=== PATIENT | female | born 1940 | race Caucasian/White ===

== ENCOUNTER 2018-12-08 20:54 | Emergency (ER) | payer SELFPAY ==
[~2018-12-08] VITALS: Ht 157.5 cm; Wt 57.4 kg
[2018-12-08 21:17] VITALS: BP 135/77
--- NOTE | 2018-12-08 21:28 | NUR ---
EYE ACUITY: BOTH EYES 20/20, LEFT EYE 20/20, RIGHT EYE 20/20.
--- NOTE | 2018-12-08 21:31 | NUR ---
PT AMBULATES TO BED 11 WITH STEADY GAIT. FAMILY ACCOMPANYING.
[2018-12-08] MEDS ORDERED: TETRACAINE HCL/PF 0.5% OPTH 4 ML BTL OP ONE (21:35)
--- NOTE | 2018-12-08 21:50 | NUR ---
PATIENT PRESENTS TO ED C/O 09/09 PULSATING RIGHT EYE PAIN WITH TEARING X 2 MONTHS. DENIES CHANGE IN VISION. PMH-- DM, GLAUCOMA . DENIES N/V/D; SKIN IS PINK/WARM/DRY; AAOX4 WITH EVEN AND STEADY GAIT; LUNGS CLEAR BL; HR EVEN AND REGULAR; PT DENIES ANY FEVER, CP, SOB, OR COUGH AT THIS TIME; VSS; PATIENT POSITIONED FOR COMFORT; HOB ELEVATED; BEDRAILS UP X2; BED DOWN. ER MD MADE AWARE OF PT STATUS.
[2018-12-08 22:46] VITALS: BP 130/73
== END 2018-12-08 22:46 | disposition home or self-care (01) ==
LOC: MED 20:54
DX: H57.11 Ocular pain, right eye (principal); E11.9 Type 2 diabetes mellitus without complications; I10 Essential (primary) hypertension; Z90.49 Acquired absence of other specified parts of digestive tract; Z88.0 Allergy status to penicillin; Z88.2 Allergy status to sulfonamides
CPT/HCPCS: 99282

== ENCOUNTER 2019-01-26 13:46 | Emergency (ER) | payer MEDICAID, OTHER ==
[~2019-01-26] VITALS: Ht 157.5 cm; Wt 56.4 kg
[2019-01-26 13:54] VITALS: BP 124/76
--- NOTE | 2019-01-26 14:12 | NUR ---
PATIENT PRESENTS TO ED C/O L FOOT PAIN. PT HIT HER L FOOT ON THE DOOR LAST WEEK. SAW PRIMARY MD AND WAS ADVISED TO OBSERVE. 3 DAYS PRIOR, L FOOT BEGAN TO SWELL. PT COMPLAINS OF PAIN 8/10, PRESSURE-LIKE. DENIES NUMBNESS. PT WAS GIVEN DICLOFENAC POMADE BY FAMILY, WHICH PROVIDED NO RELIEF. ON ASSESSMENT, L FOOT IS MILDY SWOLLEN AND WARM TO TOUCH. CR <3 SECS. VSS; PATIENT POSITIONED FOR COMFORT; HOB ELEVATED; BEDRAILS UP X2; BED DOWN. ER MD MADE AWARE OF PT STATUS.
--- NOTE | 2019-01-26 14:41 | NUR ---
X RAY AT BEDSIDE
--- NOTE | 2019-01-26 15:10 | NUR ---
Patient appears to be resting comfortably in bed. Respirations even and unlabored. Will continue to monitor.
[2019-01-26] MEDS ORDERED: IBUPROFEN 600 MG TAB PO ONE (15:35)
--- NOTE | 2019-01-26 15:43 | NUR ---
applied ortho shoe to left foot without any issues
[2019-01-26 15:52] VITALS: BP 124/76
== END 2019-01-26 15:53 | disposition home or self-care (01) ==
LOC: MED 13:46
DX: S90.122A Contusion of left lesser toe(s) without damage to nail, initial encounter (principal); E11.9 Type 2 diabetes mellitus without complications; I10 Essential (primary) hypertension; Z88.0 Allergy status to penicillin; Z88.2 Allergy status to sulfonamides; Z90.49 Acquired absence of other specified parts of digestive tract; Z98.890 Other specified postprocedural states; W22.8XXA Striking against or struck by other objects, initial encounter; Y93.89 Activity, other specified; Y92.89 Other specified places as the place of occurrence of the external cause; Y99.8 Other external cause status
CPT/HCPCS: 73630; 99283; Q0092